=== PATIENT | female | born 1960 | race Caucasian/White ===

== ENCOUNTER → 2016-04-27 | Outpatient (CLI) | payer BC | END | disposition home or self-care (01) | LOC: C.LAB1850 12:58 | PROVIDERS: ATTEND Internal Medicine Endocrinology, Diabetes & Metabolism | DX: E03.9 Hypothyroidism, unspecified (principal) ==

== ENCOUNTER 2017-03-08 04:32 | Emergency (ER) | payer BC, OTHER ==
[~2017-03-08] VITALS: Ht 152.4 cm; Wt 80.1 kg
[2017-03-08 04:35] VITALS: TEMP 37; Ht 152.4 cm; Wt 80.1 kg
[2017-03-08] MEDS ORDERED: LIDOCAINE HCL 2% VISC SOLN 20 ML UDC PO STA ×2 (04:42→05:09)
[2017-03-08] MEDS ORDERED: ALUMINUM/MAGNESIUM SUSP 30 ML UDC PO STA ×2 (04:42→05:09)
[2017-03-08] MEDS ORDERED: ONDANSETRON INJ 2 MG/ML 2 ML VIAL ONE (05:09)
[2017-03-08] MEDS ORDERED: ONDANSETRON INJ 2 MG/ML 2 ML VIAL IV STA (05:09)
[2017-03-08 05:11] VITALS: O2SAT 99
[2017-03-08 05:25] LABS: BASO % 0.3 %; BASO ABS # 0.02 K/uL (0-0.2); COMPLETE YES; EOS % 1.5 %; IG% 0.1 %; LYMPH % 33.5 %; LYMPH ABS # 2.48 K/uL (1.2-3.4); MEAN CELL VOLUME 84.9 fL (80-100); MEAN CORPUSCULAR HEMOGLOBIN 29.3 pg (25-34); MEAN CORPUSCULAR HGB CONC 34.5 g/dl (32-36); MEAN PLATELET VOLUME 10.6 fL (7.4-10.4); MONO % 11.5 %; NEUT % 53.1 %; PLATELET COUNT 321 K/uL (130-400); RED BLOOD COUNT 5.18 M/uL (4.2-5.4); WHITE BLOOD COUNT 7.41 K/uL (4.8-10.8)
[2017-03-08] MEDS ORDERED: THY/30 PO (05:40)
[2017-03-08] MEDS ORDERED: THYR15TA PO (05:40)
[2017-03-08] MEDS ORDERED: MULT-506 PO (05:40)
[2017-03-08] MEDS ORDERED: CYAN10005 PO (05:40)
[2017-03-08 05:42] LABS: CALCIUM 9.6 mg/dl (8.5-10.1); CREATININE 0.89 mg/dl (0.60-1.20); POTASSIUM 3.6 mmol/L (3.5-5.1)
[2017-03-08 05:53] LABS: THYROID STIMULATING HORMONE 0.464 uIu/ml (0.300-4.500)
[2017-03-08] MEDS ORDERED: PANTOprazole SOD 40 MG TAB PO STA (05:57)
--- NOTE | 2017-03-08 05:58 | EMERGENCY ROOM VISIT NOTE ---
History First contact with patient: 04:39 Chief Complaint: VOMITING Stated Complaint: LIGHT HEADED,STOMACH Nursing Triage Summary: Patient states she has been sick for past two weeks. Patient states for past two days patient has been lightheaded and vommiting. History of Present Illness The patient is a 56 year old female who presents to the Emergency Room with complaints of discomfort in her throat and feeling lightheaded with brief episode of tingling in her chest. Patient states the tingling to her chest was brief less than a minute. No exertional or prolonged chest pain. Patient states 2 weeks ago she started off with a sore throat and was given Keflex for a negative strep test. She was then told to stop this and she went back and was given Z-Abebe and ketoconazole for thrush and possible ear infection. Patient states since then she's had some throat discomfort with swallowing and gags and tenderness there is at. Patient states the thrush is cleared. She is no more your symptoms. Patient denies current sore throat, earache, dyspnea, abdominal pain, black or blood in her stool, fever, chills. Patient states when she swallows she feels as if there is something in her throat. She is able to tolerate by mouth fluids and food. Review of Systems See HPI for pertinent positives & negatives. A total of 10 systems reviewed and were otherwise negative. Past Medical/Surgical History Hysterectomy, orthopedic surgery, appendectomy, hypothyroidism Social History Smoking Status: Never Smoker Smokeless Tobacco Use: No Alcohol Use: none Drug Use: none Marital Status: Housing Status: lives with family Occupation Status: employed Current/Historical Medications Scheduled Cyanocobalamin (Vitamin B-12), 1,000 MCG PO DAILY Multivitamin (Multivitamin), 1 TAB PO DAILY Thyroid ([place] Thyroid), 30 MG PO QAM Thyroid ([place] Thyroid), 15 MG PO QAM Physical Exam Vital Signs Date Time Temp Pulse Resp B/P (MAP) Pulse Ox O2 Delivery O2 Flow Rate FiO2 03/08/17 05:11 99 Room Air 03/08/17 05:11 96 03/08/17 05:10 73 03/08/17 05:03 96 Room Air 03/08/17 04:35 37.0 80 20 145/88 97 Room Air Physical Exam VITALS: Vitals are noted on the nurse's note and reviewed by myself. Vital signs stable. GENERAL: Pleasant female speaking in full sentences, in no acute distress, nondiaphoretic, well-developed well-nourished. SKIN: The skin was without rashes, erythema, edema, or bruising. There is no tenting of the skin. Capillary reflex less than 2 seconds. HEAD: Normocephalic atraumatic. EARS: External auditory canals clear, tympanic membranes pearly hogan without erythema or effusion bilaterally. EYES: Pupils equal round and reactive to light and accommodation. Conjunctivae without injection, sclerae without icterus. Extraocular movements intact. NOSE: Patent, turbinates without inflammation or discharge. No sinus tenderness. MOUTH: Mucous membranes moist. Pharynx without erythema or exudate. Uvula midline. Airway patent. Tongue does not deviate. NECK: Supple without nuchal rigidity. No lymphadenopathy. No thyromegaly. Cervical spine is nontender. No JVD. HEART: Regular rate and rhythm without murmurs gallops or rubs. LUNGS: Clear to auscultation bilaterally without wheezes, rales or rhonchi. No dullness to percussion. No retractions or accessory muscle use. ABDOMEN: Positive bowel sounds x 4. Normal tympanic percussion. Soft, nontender, without masses or organomegaly. Barbour sign negative. No guarding or rebound tenderness. MUSCULOSKELETAL: No muscle atrophy, erythema, or edema noted. NEURO: Patient was alert and oriented to person place and time. Normal sensation to light and sharp touch. No focal neurological deficits. Medical Decision & Procedures Laboratory Results 03/08/17 05:12 Red Blood Count 5.18, Mean Corpuscular Volume 84.9, Mean Corpuscular Hemoglobin 29.3, Mean Corpuscular Hemoglobin Concent 34.5, Mean Platelet Volume 10.6, Neutrophils (%) (Auto) 53.1, Lymphocytes (%) (Auto) 33.5, Monocytes (%) (Auto) 11.5, Eosinophils (%) (Auto) 1.5, Basophils (%) (Auto) 0.3, Neutrophils # (Auto ) 3.94, Lymphocytes # (Auto) 2.48, Monocytes # (Auto) 0.85, Eosinophils # (Auto ) 0.11, Basophils # (Auto) 0.02 03/08/17 05:12 Test 03/08/17 05:12 White Blood Count 7.41 K/uL (4.8-10.8) Red Blood Count 5.18 M/uL (4.2-5.4) Hemoglobin 15.2 g/dL (12.0-16.0) Hematocrit 44.0 % (37-47) Mean Corpuscular Volume 84.9 fL (80-100) Mean Corpuscular Hemoglobin 29.3 pg (25-34) Mean Corpuscular Hemoglobin Concent 34.5 g/dl (32-36) Platelet Count 321 K/uL (130-400) Mean Platelet Volume 10.6 fL (7.4-10.4) Neutrophils (%) (Auto) 53.1 % Lymphocytes (%) (Auto) 33.5 % Monocytes (%) (Auto) 11.5 % Eosinophils (%) (Auto) 1.5 % Basophils (%) (Auto) 0.3 % Neutrophils # (Auto) 3.94 K/uL (1.4-6.5) Lymphocytes # (Auto) 2.48 K/uL (1.2-3.4) Monocytes # (Auto) 0.85 K/uL (0.11-0.59) Eosinophils # (Auto) 0.11 K/uL (0-0.5) Basophils # (Auto) 0.02 K/uL (0-0.2) RDW Standard Deviation 41.1 fL (36.4-46.3) RDW Coefficient of Variation 13.3 % (11.5-14.5) Immature Granulocyte % (Auto) 0.1 % Immature Granulocyte # (Auto) 0.01 K/uL (0.00-0.02) Anion Gap 8.0 mmol/L (3-11) Est Creatinine Clear Calc Drug Dose 65.3 ml/min Estimated GFR () 83.4 Estimated GFR (Non- 71.9 BUN/Creatinine Ratio 17.0 (10-20) Calcium Level 9.6 mg/dl (8.5-10.1) Total Bilirubin 0.8 mg/dl (0.2-1) Direct Bilirubin 0.2 mg/dl (0-0.2) Aspartate Amino Transf (AST/SGOT) 10 U/L (15-37) Alanine Aminotransferase (ALT/SGPT) 23 U/L (12-78) Alkaline Phosphatase 82 U/L (45-117) Total Protein 7.9 gm/dl (6.4-8.2) Albumin 4.1 gm/dl (3.4-5.0) Lipase 198 U/L (73-393) Thyroid Stimulating Hormone (TSH) 0.464 uIu/ml (0.300-4.500) Medications Administered Medications (Trade) Dose Ordered Sig/Carlie Route Start Time Stop Time Status Last Admin Dose Admin Lidocaine HCl (Viscous Lidocaine 2% Soln) 10 ml NOW STAT PO 03/08/17 04:42 03/08/17 04:52 DC 03/08/17 05:02 10 ML Al Hydroxide/Mg Hydroxide (Maalox Susp) 30 ml NOW STAT PO 03/08/17 04:42 03/08/17 04:52 DC 03/08/17 05:01 30 ML Ondansetron HCl (Zofran Inj) 4 mg STK-MED ONCE .ROUTE 03/08/17 05:09 03/08/17 05:10 DC 03/08/17 05:10 4 MG ED Course Prior records/ancillary studies reviewed and summarized above. Nursing notes reviewed. Additional history obtained from The patient's history was concerning for nausea, vomiting, chest tingling and feeling of something in her throat with discomfort Differential diagnosis: Etiologies such as gastritis, esophagitis, metabolic, infection, hypo/ hyperglycemia, electrolyte abnormalities, cardiac sources, intracerebral event, toxicologic, neurologic, as well as others were entertained. Physical examination: As above. ER treatment provided: IV Lock GI cocktail, the patient began to gag on the GI cocktail and spit some of it up and was given Zofran and finished drinking the rest of the GI cocktail without difficulty and reported improvement of symptoms. On reassessment the patient felt better. Diagnostics interpretation by me: ECG: Normal sinus, normal intervals, no acute ST-T wave changes. Impression normal sinus rhythm interpreted by myself The labs revealed negative troponin. Stable H&H. No leukocytosis Imaging studies: Chest x-ray with no acute consolidation, pneumothorax or free air per my interpretation. Exam and history seem consistent with esophagitis most likely from multiple medications patient was recently taking. Patient was neurovascularly and neurologically intact. She did not have acute abdomen on exam. She is well- appearing. She is tolerating fluids. She is advised take medications as directed and to follow-up with family care in a few days or here in the ER sooner for chest pain, difficulty breathing, abdominal pain, worsening signs or symptoms or as needed. By the evaluation outlined above emergent etiologies such as infection, electrolyte abnormalities, cardiac sources, intracerebral event, toxologic, neurologic, abnormalities blood glucose, metabolic, as well as others were deemed relatively unlikely. The pt informed about the findings as listed above. All questions were answered and pleased with the treatment. Return instructions were outlined and the patient was discharged in stable condition. Outpatient prescription management: Protonix Referral: The patient was referred back to primary care physician for follow-up in 2 to 3 days for a recheck of the current condition. Case reviewed by attending. Medical Decision As above Medication Reconcilliation Current Medication List: was personally reviewed by me Blood Pressure Screening Patient's blood pressure: Elevated blood pressure Blood pressure disposition: Elevated BP felt to be situational Impression Primary Impression: Esophagitis Additional Impressions: Vomiting chest tingling Departure Information Dispostion Home / Self-Care Condition GOOD Referrals Billy Gonzalez M.D. (PCP) Patient Instructions My [facility] Additional Instructions Protonix 40 m tablet daily for next 2 weeks. Take this on an empty stomach. Try Maalox or Zantac for breakthrough symptoms for reflux. Recommend soft foods until symptoms resolve. Avoid large meals. Avoid acidic foods. Rest and drink plenty of fluids as tolerated. Continue current medications. Avoid strenuous activities and anything that worsens your pain. Resume normal activities once your symptoms resolve. Return to the ER immediately for worsening or persistent chest pain, abdominal pain, black or blood in your stools, vomiting, fevers, chest pains, difficulty breathing, worsening of your condition, or as needed. Follow up with your primary physician in 2-3 days for a recheck of your current condition. Recommend follow-up with gastroenterology if symptoms do not resolve within a week or 2. Problem Qualifiers
[2017-03-08] MEDS ORDERED: PANT40TA PO (06:00)
[2017-03-08] MEDS ORDERED: ONDANSETRON HOME PACK 4MG OD TAB PO ONE (06:00)
[2017-03-08 06:13] VITALS: BP 124/76; PULSE 86; O2SAT 98
--- NOTE | 2017-03-08 06:36 | DIAGNOSTIC IMAGING REPORT ---
CHEST ONE VIEW PORTABLE CLINICAL HISTORY: Atypical chest pain COMPARISON STUDY: 10/09/2014 FINDINGS: The cardiac and mediastinal contours are normal. There is no evidence of focal pulmonary consolidation. There is no evidence of failure. No pleural effusions are visualized.[ IMPRESSION: No active disease in the chest. Electronically signed by: Kehinde Nassar M.D. 03/08/2017 6:35 AM Dictated Date/Time: 03/08/2017 6:34 AM
== END 2017-03-08 06:15 | disposition home or self-care (01) ==
LOC: C.EDB 04:33
DX: K20.9 Esophagitis, unspecified (principal); R11.10 Vomiting, unspecified; Z90.710 Acquired absence of both cervix and uterus; E03.9 Hypothyroidism, unspecified; Z79.899 Other long term (current) drug therapy